=== PATIENT | male | born 1980 | race American Indian/Alaskan Native ===

== ENCOUNTER 2016-06-22 15:36 | Emergency (ER) | payer SELFPAY ==
[2016-06-22 16:53] VITALS: BP 118/75
--- NOTE | 2016-06-22 17:19 | Emergency Department Report ---
Chief Complaint: Back Pain/Injury Stated Complaint: BACK PAIN Time Seen by Provider: 06/22/16 16:49 - HPI History of Present Illness: pt c/o back since Saturday - ROS Review of Systems: pt denies hematuria - Exam Vital Signs: Vital Signs 06/22/16 16:48 Temperature 98.6 F Pulse Rate 68 Respiratory 18 Rate Blood Pressure 118/75 O2 Sat by Pulse 100 Oximetry Physical Exam: pt looks well, non toxic. no cva tenderness dorothea. R sided back pain noted on exam MSE screening note: Focused history and physical exam performed. Due to findings the following was ordered: lab ED Disposition for MSE Condition: Stable
[2016-06-22 17:45] LABS: Bilirubin,Urine NEG (Negative); Blood,Urine NEG (Negative); Ketones,Urine NEG (Negative); Leukocyte Esterase,Urine NEG (Negative); Nitrite,Urine NEG (Negative); Protein,Urine <15 mg/dL mg/dL (Negative); RBC,Urine < 1.0 /HPF (0.0-6.0); Urobilinogen,Urine < 2.0 mg/dL (<2.0)
[2016-06-22] MEDS ORDERED: MOTRIN PO ONE (18:37)
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
== END 2016-06-22 19:03 | disposition home or self-care (01) ==
LOC: ED 15:36
DX: S39.012A Strain of muscle, fascia and tendon of lower back, initial encounter (principal); F17.200 Nicotine dependence, unspecified, uncomplicated; X58.XXXA Exposure to other specified factors, initial encounter; Y93.9 Activity, unspecified; Y92.9 Unspecified place or not applicable; Y99.9 Unspecified external cause status
CPT/HCPCS: 81001; 99283

== ENCOUNTER 2016-09-21 22:44 | Emergency (ER) | payer SELFPAY ==
[2016-09-21 22:53] VITALS: BP 105/70
[2016-09-21] MEDS ORDERED: MOTRIN PO ONE (23:26)
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
== END 2016-09-21 23:47 | disposition home or self-care (01) ==
LOC: ED 22:44
DX: S39.012A Strain of muscle, fascia and tendon of lower back, initial encounter (principal); F17.200 Nicotine dependence, unspecified, uncomplicated; X50.0XXA Overexertion from strenuous movement or load, initial encounter; Y93.89 Activity, other specified; Y99.9 Unspecified external cause status; Y92.89 Other specified places as the place of occurrence of the external cause
CPT/HCPCS: 99282

== ENCOUNTER 2016-10-31 12:01 | Emergency (ER) | payer SELFPAY ==
[2016-10-31 12:23] VITALS: BP 111/71
[2016-10-31 13:04] LABS: Basophils % (Auto) 0.4 % (0.0-1.8); Eosinophils % (Auto) 1.6 % (0.0-4.3); Hematocrit 42.3 % (35.5-45.6); Hemoglobin 14.1 gm/dl (11.8-15.2); Mean Corpuscular HGB Conc 33 % (32-34); Mean Corpuscular Hemoglobin 33 pg (28-32); Mean Corpuscular Volume 99 fl (84-94); Platelet Count 209 K/mm3 (140-440); Red Blood Count 4.27 M/mm3 (3.65-5.03); Red Cell Distribution Width 14.2 % (13.2-15.2); White Blood Count 5.1 K/mm3 (4.5-11.0)
[2016-10-31 13:24] LABS: Creatine Kinase MB 3.9 ng/mL (0.0-4.0)
[2016-10-31 13:26] LABS: Anion Gap 15 mmol/L; Blood Urea Nitrogen 12 mg/dL (9-20); Calcium 8.8 mg/dL (8.4-10.2); Carbon Dioxide 26 mmol/L (22-30); Chloride 100.8 mmol/L (98-107); Creatine Kinase 419 units/L (55-170); Glucose 85 mg/dL (75-100); Potassium 4.4 mmol/L (3.6-5.0); Sodium 137 mmol/L (137-145)
--- NOTE | 2016-10-31 18:23 | Cat Scan Report ---
FINAL REPORT PROCEDURE: CT HEAD/BRAIN WO CON TECHNIQUE: Computerized tomography of the head was performed without contrast material. HISTORY: Dizziness COMPARISON: No prior studies are available for comparison. FINDINGS: Brain: Brain density appears normal. No evidence of intracranial hemorrhage. No parenchymal hemorrhage, mass lesions or mass effect are seen. No abnormal extraxial fluid collects or masses are seen. Ventricles: Ventricles are normal size and are midline. Bone Windows: No evidence of skull fracture. There is non fusion of the anterior ring of C1, normal variant. Paranasal sinuses: Visualized portions appear clear. Not all the maxillary sinuses are included on this exam. Mastoid air cells: Clear IMPRESSION: No acute abnormalities are identified. There is non fusion of the anterior ring of C1, normal variant.
[2016-10-31 18:28] LABS: Urine Drugs of Abuse Note Disclamer
[2016-10-31 18:47] LABS: Bilirubin,Urine NEG (Negative); Blood,Urine NEG (Negative); Ketones,Urine NEG (Negative); Leukocyte Esterase,Urine TR (Negative); Nitrite,Urine NEG (Negative); Protein,Urine <15 mg/dL mg/dL (Negative); Urobilinogen,Urine < 2.0 mg/dL (<2.0)
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
== END 2016-10-31 19:38 | disposition home or self-care (01) ==
LOC: ED 12:01
DX: I44.0 Atrioventricular block, first degree (principal); R42 Dizziness and giddiness; F17.200 Nicotine dependence, unspecified, uncomplicated
CPT/HCPCS: 36415; 70450; 80048; 80307; 81001; 82550; 82553; 84484; 85025; 93005; 93010

== ENCOUNTER 2018-07-15 09:07 | Emergency (ER) | payer SELFPAY ==
[2018-07-15 09:14] VITALS: BP 111/68
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
== END 2018-07-15 11:20 | disposition home or self-care (01) ==
LOC: ED 09:07
DX: K04.7 Periapical abscess without sinus (principal); R51 Headache; F17.200 Nicotine dependence, unspecified, uncomplicated
CPT/HCPCS: 99282

== ENCOUNTER 2018-11-05 20:07 | Emergency (ER) | payer SELFPAY ==
[2018-11-05 20:22] VITALS: BP 95/63
--- NOTE | 2018-11-05 20:43 | Event Note ---
ED Screening Note Date of service: 11/05/18 Time: 20:39 ED Screening Note: This is a 37 y.o. M. that presents to the ER with cramps to BLE and SOB. This initial assessment/diagnostic orders/clinical plan/treatment(s) is/are subject to change based on patients health status, clinical progression and re- assessment by fellow clinical providers in the ED. Further treatment and workup at subsequent clinical providers discretion. Patient/guardian urged not to elope from the ED as their condition may be serious if not clinically assessed and managed. Initial orders include: Labs
[2018-11-05 20:57] LABS: Basophils # (Auto) 0.1 K/mm3 (0.0-0.1); Basophils % (Auto) 0.9 % (0.0-1.8); Hematocrit 49.9 % (35.5-45.6); Hemoglobin 17.1 gm/dl (11.8-15.2); Lymphocytes # (Auto) 1.4 K/mm3 (1.2-5.4); Lymphocytes % (Auto) 16.2 % (13.4-35.0); Mean Corpuscular HGB Conc 34 % (32-34); Mean Corpuscular Volume 100 fl (84-94); Monocytes # (Auto) 0.6 K/mm3 (0.0-0.8); Monocytes % (Auto) 7.1 % (0.0-7.3); Platelet Count 252 K/mm3 (140-440); Red Blood Count 4.98 M/mm3 (3.65-5.03); Red Cell Distribution Width 14.2 % (13.2-15.2)
[2018-11-05 21:22] LABS: Albumin 5.6 g/dL (3.9-5); Calcium 10.7 mg/dL (8.4-10.2)
== END 2018-11-05 22:45 | disposition left against medical advice (07) ==
LOC: ED 20:07
DX: E86.0 Dehydration (principal); Z53.21 Procedure and treatment not carried out due to patient leaving prior to being seen by health care provider
CPT/HCPCS: 36415; 80053; 85025